=== PATIENT | male | born 1960 | race Two or more races ===

== ENCOUNTER 2023-01-10 06:09 | Day surgery (SDC) | payer OTHER | END 2023-01-10 11:15 | disposition home or self-care (01) | LOC: AMB-ENDOS 06:09 | PROVIDERS: ATTEND Surgery | DX: D12.2 Benign neoplasm of ascending colon (principal); K57.30 Diverticulosis of large intestine without perforation or abscess without bleeding; D37.4 Neoplasm of uncertain behavior of colon; R19.5 Other fecal abnormalities; Z20.822 Contact with and (suspected) exposure to COVID-19 ==